=== PATIENT | female | born 1970 | race Hispanic/Latino ===

== ENCOUNTER 2018-02-09 10:45 | Outpatient (CLI) | payer BC | END 2018-02-09 10:46 | disposition home or self-care (01) | LOC: BICMAMMO 10:45 | PROVIDERS: ATTEND Obstetrics & Gynecology | DX: Z12.31 Encounter for screening mammogram for malignant neoplasm of breast (principal); R92.1 Mammographic calcification found on diagnostic imaging of breast | CPT/HCPCS: 77063; 77067 ==

== ENCOUNTER 2018-03-07 10:38 | Outpatient (CLI) | payer BC | END 2018-03-07 10:39 | disposition home or self-care (01) | LOC: BICULT 10:38 | PROVIDERS: ATTEND Internal Medicine Gastroenterology | DX: R10.32 Left lower quadrant pain (principal); K62.5 Hemorrhage of anus and rectum; Z80.1 Family history of malignant neoplasm of trachea, bronchus and lung | CPT/HCPCS: 76770 ==

== ENCOUNTER 2019-05-21 12:10 | Outpatient (CLI) | payer BC ==
--- NOTE | 2019-05-21 12:38 | RAD ---
Exam:4 views right elbow HISTORY: Pain. Injury. COMPARISON: None FINDINGS: No joint effusion. No fracture or malalignment. Joint spaces are preserved. IMPRESSION: No fracture.
== END 2019-05-21 12:11 | disposition home or self-care (01) ==
LOC: BICRAD 12:10
PROVIDERS: ATTEND Nurse Practitioner Family
DX: S59.901A Unspecified injury of right elbow, initial encounter (principal)

== ENCOUNTER 2019-08-02 07:57 | Outpatient (CLI) | payer BC ==
--- NOTE | 2019-08-02 10:05 | ULT ---
COMPLETE ABDOMINAL ULTRASOUND: HISTORY: Left upper quadrant pain. FINDINGS: The liver appears unremarkable. No common bile duct dilatation. The gallbladder shows no evidence of gallstones, wall thickening, edema or pericholecystic fluid. The visualized pancreas, IVC, aorta and spleen are unremarkable. No renal hydronephrosis. No evidence for abnormal fluid collection. IMPRESSION: Normal abdominal ultrasound. POS: OFF
--- NOTE | 2019-08-02 10:20 | BD ---
DEXA BONE DENSITY STUDY: Date: 08/02/2019 COMPARISON: None. HISTORY: 49-year-old postmenopausal female for screening. FINDINGS: Lumbar Spine: BMD (g/cm2) L1 1.006 T-Score: 0.1 L2 1.046 T-Score: 0.2 L3 1.032 T-Score: -0.5 L4 0.984 T-Score: -0.7 L1-L4 1.015 T-Score: -0.3 Left Femoral Neck: 1.057 T-Score: 1.9 Total Femur: 1.169 T-Score: 1.9 IMPRESSION: Normal bone mineral density. POS: CET
--- NOTE | 2019-08-02 10:53 | MMO ---
Bilateral MAMMO Bilat Screen [facility]. CLINICAL HISTORY: Patient is 49 years old and is seen for screening. The patient has no family history of breast cancer. The patient has no personal history of cancer. VIEWS: The views performed were: bilateral craniocaudal with tomosynthesis and bilateral mediolateral oblique with tomosynthesis. FILMS COMPARED: The present examination has been compared to prior imaging studies performed at [facility] on 12/24/2013, 01/07/2015, 10/13/2016 and 02/09/2018. This study has been interpreted with the assistance of computer-aided detection. MAMMOGRAM FINDINGS: The breasts are heterogeneously dense, which could obscure a lesion on mammography. Finding 1: There are stable benign appearing calcifications seen in both breasts. Finding 2: There are stable benign appearing densities seen in both breasts. There are no suspicious masses, suspicious calcifications, or new areas of architectural distortion. IMPRESSION: THERE IS NO MAMMOGRAPHIC EVIDENCE OF MALIGNANCY. A ROUTINE FOLLOW-UP MAMMOGRAM IN 1 YEAR IS RECOMMENDED. THE RESULTS OF THIS EXAM WERE SENT TO THE PATIENT. ACR BI-RADS Category 2 - Benign finding MAMMOGRAPHY NOTE: 1. A negative mammogram report should not delay a biopsy if a dominant of clinically suspicious mass is present. 2. Approximately 10% to 15% of breast cancers are not detected by mammography. 3. Adenosis and dense breasts may obscure an underlying neoplasm. Reported by: ABEL JONES MD Electonically Signed: [id number]
== END 2019-08-02 07:58 | disposition home or self-care (01) ==
LOC: BICULT 07:57
PROVIDERS: ATTEND Nurse Practitioner Family
DX: Z12.31 Encounter for screening mammogram for malignant neoplasm of breast (principal); Z13.820 Encounter for screening for osteoporosis; R10.12 Left upper quadrant pain
CPT/HCPCS: 77063; 77067; 77080; 93975

== ENCOUNTER 2019-08-17 07:25 | Outpatient (CLI) | payer BC ==
[2019-08-17] MEDS ORDERED: Iopamidol-370 76% 500 ML 1 ML ONE (09:10)
--- NOTE | 2019-08-17 10:35 | CT ---
ABDOMEN AND PELVIC CT SCAN WITH IV CONTRAST: Date: 08/17/2019 HISTORY: Left upper quadrant pain, weight gain. FINDINGS: The lung bases appear clear. The visualized liver, gallbladder, pancreas, spleen, and adrenal glands are unremarkable. No renal calculus, or solid or cystic mass. No hydronephrosis. No evidence for larg e or small bowel obstruction. No abscess, adenopathy, or abnormal fluid collection. Moderate solid fe alhaji material throughout the colon and dilated rectum. No CT evidence for acute appendicitis. IMPRESSION: Unremarkable abdomen and pelvic CT. POS: TPC
== END 2019-08-17 07:26 | disposition home or self-care (01) ==
LOC: BICCT 07:25
PROVIDERS: ATTEND Physician Assistant Medical
DX: R10.12 Left upper quadrant pain (principal); R63.5 Abnormal weight gain
CPT/HCPCS: 74177; Q9967

== ENCOUNTER 2023-09-06 11:45 | Outpatient (CLI) | payer BC | END 2023-09-06 11:46 | disposition home or self-care (01) | LOC: BICMAMMO 11:45 | PROVIDERS: ATTEND Specialist | DX: Z12.31 Encounter for screening mammogram for malignant neoplasm of breast (principal) | CPT/HCPCS: 77063; 77067 ==